=== PATIENT | male | born 1945 | race Caucasian/White ===

== ENCOUNTER 2018-07-25 13:42 | Emergency (ER) | payer MEDICARE, BC ==
[2018-07-25 14:23] VITALS: BP 149/61
[2018-07-25] MEDS ORDERED: Polymyx/Trimethoprim OPTH* 10 ML BTL BOTH EYES ONE (14:35)
[2018-07-25] MEDS ORDERED: Aspirin 81 mg CHEW TAB* 81 MG TAB.CHEW PO ONE (14:35)
--- NOTE | 2018-07-25 14:42 | UC ---
General HPI - HPI Summary HPI Summary: 1. BOTH EYES RED WITH DISCHARGE AND MATTING SHUT X 2 DAYS. NO EYE PAIN, VUSAL LOSS OF CONTACT USE. 2. AFTER SHOVELED SNOW, NOTED A 1 HOUR HX OF FEELING "HEAVINESS IN SHOULDERS AND UPPER ARMS". DENIES SWEATY, NAUSEA AND SOB. IT LASTED ABOUT 1 HOUR. PT NOTES "IT WAS UNLIKE ANYTHING I'VE HAD AND IT WORRIED ME". PT TRIED TO CALL HIS PCP BUT COULDN'T REACH THEM. HX HTN, HIGH CHOLESTEROL, DM. LAST STRESS TEST WAS YEARS AGO. HX OF IMMUNE DEFICIENCY, VIRAL LOAD UNDETECTABLE. CD4 NOT KNOWN. - History of Current Complaint Chief Complaint: UCEye Stated Complaint: BILATERAL EYE COMPLAINT Time Seen by Provider: 07/25/18 14:04 Pain Intensity: 0 Associated Signs & Symptoms: Negative: Fever, Headache - Allergy/Home Medications Allergies/Adverse Reactions: Allergies Allergy/AdvReac Type Severity Reaction Status Date / Time No Known Allergies Allergy Verified 07/25/18 14:07 Home Medications: Home Medications Acetaminophen [Acetaminophen Extra Strength] 2,000 mg PO ONCE 07/25/18 [History Confirmed 07/25/18] Aspirin EC TAB* [Ecotrin EC Low Dose 81 MG*] 81 mg PO DAILY 07/25/18 [History Confirmed 07/25/18] Dronabinol CAP* [Marinol CAP*] 5 mg PO BID 07/25/18 [History Confirmed 07/25/18] Efavirenz/Emtricitab/Tenof(NF) [Atripla(NF)] 1 tab PO DAILY 07/25/18 [History Confirmed 07/25/18] Ezetimibe TAB* [Zetia TAB*] 10 mg PO DAILY 07/25/18 [History Confirmed 07/25/18] FLUoxetine CAP* [PROzac CAP*] 20 mg PO DAILY 07/25/18 [History Confirmed ] Fenofibrate(NF) [Tricor(NF)] 145 mg PO DAILY 07/25/18 [History Confirmed ] Glyburide/Metformin HCl [Glyburide/Metformin HCl 1.25-250 mg] 1 tab PO BID 07/25 [History Confirmed 07/25/18] Medication Replacing Diovan 1 tab PO DAILY 07/25/18 [History] Ranitidine TAB (NF) [Zantac TAB (NF)] 150 mg PO BID 07/25/18 [History Confirmed 07/25/18] Rosuvastatin (NF) [Crestor (NF)] 20 mg PO 1700 07/25/18 [History Confirmed 07/25] Tamsulosin CAP* [Flomax CAP*] 0.4 mg PO DAILY 07/25/18 [History Confirmed ] PMH/Surg Hx/FS Hx/Imm Hx Endocrine History: Diabetes, Dyslipidemia Cardiovascular History: Hypertension Other History Of: HIV - Surgical History Surgery Procedure, Year, and Place: Herniorrhaphy, Knee Arthroscopy, Colon Polyps - Family History Known Family History: Positive: Non-Contributory - Social History Alcohol Use: None Substance Use Type: Marijuana Substance Use Comment - Amount & Last Used: Daily Smoking Status (MU): Never Smoked Tobacco - Immunization History Vaccination Up to Date: Yes Review of Systems All Other Systems Reviewed And Are Negative: Yes Constitutional: Negative: Fever Skin: Positive: Negative Eyes: Positive: Drainage, Eye Redness ENT: Positive: Negative Respiratory: Positive: Negative Cardiovascular: Negative: Palpitations, Chest Pain Gastrointestinal: Positive: Negative Genitourinary: Positive: Negative Motor: Positive: Negative Neurovascular: Positive: Negative Musculoskeletal: Positive: Negative Neurological: Positive: Negative Psychological: Positive: Negative Is Patient Immunocompromised?: Yes Physical Exam Triage Information Reviewed: Yes Appearance: Well-Appearing Vital Signs: Initial Vital Signs Temp 98.4 F 07/25/18 14:06 Pulse 48 07/25/18 14:06 Resp 16 07/25/18 14:06 BP 149/61 07/25/18 14:06 Pulse Ox 98 07/25/18 14:06 Vital Signs Reviewed: Yes Eyes: Positive: Other: - NO AURICULAR ADENOPATHY, PERIORBITAL EDEMA OR ERYTHEMA. CONJUNCTIVA DEEPLY INJECTED, WATERY AND YELLOW EXUDATES. ENT: Positive: Pharynx normal, TMs normal. Negative: Nasal congestion Neck: Positive: Supple, Nontender, No Lymphadenopathy Respiratory: Positive: Lungs clear, Normal breath sounds, No respiratory distress Cardiovascular: Positive: Other: - IRREGULAR. RATE 61. NO MURMURS. STRONG RADIAL PULSE. Abdomen Description: Positive: Nontender, No Organomegaly, Soft Bowel Sounds: Positive: Present Musculoskeletal: Positive: ROM Intact, No Edema Neurological: Positive: Alert Psychological: Positive: Age Appropriate Behavior Skin Exam: Normal Diagnostics - EKG Cardiac Rate: Other Rate - SINUS BRADYCARDIA WITH ? COMPENSATORY BIGEMINY THT COULD BE JUNCTIONAL Cardiac Rhythm: Other Rhythm: New - ABOVE ST Segment: Normal Course/Dx - Course Course Of Treatment: PT REFUSED EMS. HE IS A&O X3 AND ABLE TO MAKE DECISIONS. I EXPLAINED THE RISK OF MVA, DELAY IN CARE, POSSIBLE WORSENING, DISABILITY AND . PT STILL DECLINED EMS. HE DID AGREE TO CALL HIS SISTER WHO LIVES LOCAL AND SHE WILL DRIVE HIM TO ER. HE AGREES TO LEAVE AMA. [facility] ER CALLED. REPORT GIVEN TO DR LOPEZ INCLUDING HX OF HEAVINESS IN SHOULDERS/ARMS X 1 HOUR AFTER HE SHOVELED SNOW, ARRYTHMIA ON EKG AND HX DM, HTN, HIGH CHOLESTEROL. ALSO ADVISED OF CONJUNCTIVITIS(TX HERE), HIV AND TX 4 BABY ASA HERE. ALSO ADVISED EMS RESUFED BUT SISTER WILL DRIVE PT TO ER. - Differential Dx - Multi-Symptom Differential Diagnoses: Other - 1. BACTERIAL CONJUNCTIVITIS, TX STARTED HERE AND DISP TO HOME. 2. ARRYTHMIA (NEW) PLUS HEAVINESS IN BOTH SHOULDERS AND ARMS X 1 HOUR THIS AM. CARDIAC PATHOLOGY UNTIL PROVEN NOT BUT NO STEMI. ASA HERE AND PT GO TO ER VIA PRIVATE CAR. EMS REFUSED. - Diagnoses Provider Diagnosis: Conjunctivitis, Arrhythmia, Chest pain Discharge - Sign-Out/Discharge Documenting (check all that apply): Patient Departure All imaging exams completed and their final reports reviewed: No Studies - Discharge Plan Condition: Stable Disposition: AGAINST MEDICAL ADVICE Referrals: Robyn JASMINE,Travis Khan [Primary Care Provider] - Additional Instructions: LEAVE HERE AND GO DIRECTLY TO THE [facility] ER WITH YOUR SISTER DRIVING DISCUSSED - Billing Disposition and Condition Condition: STABLE Disposition: Against Medical Advice
== END 2018-07-25 15:22 | disposition left against medical advice (07) ==
LOC: UCCORT 13:42
DX: H10.9 Unspecified conjunctivitis (principal); I49.9 Cardiac arrhythmia, unspecified; R07.9 Chest pain, unspecified; I10 Essential (primary) hypertension; E11.9 Type 2 diabetes mellitus without complications; Z79.84 Long term (current) use of oral hypoglycemic drugs; Z21 Asymptomatic human immunodeficiency virus [HIV] infection status
CPT/HCPCS: 93005; 99203; A9270-GY; G0463